=== PATIENT | male | born 1960 ===

== ENCOUNTER → 2020-04-09 | Outpatient (CLI) | payer OTHER | END | disposition home or self-care (01) | LOC: TOM 09:43 | PROVIDERS: ATTEND Internal Medicine | DX: N20.0 Calculus of kidney (principal); Z12.11 Encounter for screening for malignant neoplasm of colon; I25.10 Atherosclerotic heart disease of native coronary artery without angina pectoris; K66.0 Peritoneal adhesions (postprocedural) (postinfection); K59.01 Slow transit constipation ==